=== PATIENT | female | born 1980 | race Caucasian/White ===

== ENCOUNTER 2018-03-08 10:31 | Emergency (ER) | payer MEDICAID ==
[~2018-03-08] VITALS: Ht 160 cm; Wt 64.4 kg
[2018-03-08 10:32] VITALS: Ht 160 cm; Wt 64.4 kg
[2018-03-08 12:58] LABS: BASOPHIL % 0.2 % (0-2); PLATELET COUNT 175 x10^3mcL (130-400)
[2018-03-08 14:36] VITALS: BP 130/86
== END 2018-03-08 15:14 | disposition home or self-care (01) ==
LOC: ED 10:31
PROVIDERS: Emergency Medicine
DX: O36.4XX0 Maternal care for intrauterine death, not applicable or unspecified (principal)
CPT/HCPCS: 36415

== ENCOUNTER 2018-03-12 23:08 | Inpatient (IN) | payer MEDICAID ==
[~2018-03-12] VITALS: Ht 160 cm; Wt 63.7 kg
[2018-03-12 23:13] VITALS: Ht 160 cm; Wt 63.7 kg
[2018-03-13 00:14] LABS: BASOPHIL % 0.2 % (0-2); PLATELET COUNT 210 x10^3mcL (130-400); RED CELL DISTRIBUTION WIDTH 13.4 % (11.5-14.5)
[2018-03-13] MEDS ORDERED: AMPICILLIN500 MG PO (01:41)
[2018-03-13 02:09] LABS: CALCIUM 8.5 mg/dL (8.5-10.1); CARBON DIOXIDE 27.2 mmol/L (21-32); CHLORIDE SERUM 102 mmol/L (98-107); CREATININE SERUM 0.7 mg/dL (0.6-1.0); GFR1 > 60 mL/min; GLUCOSE SERUM 105 mg/dL (74-106); MAGNESIUM 1.6 mg/dL (1.8-2.4); PHOSPHOROUS 4.1 mg/dL (2.5-4.9); POTASSIUM SERUM 3.4 mmol/L (3.5-5.1); SODIUM SERUM 139 mmol/L (136-145)
[2018-03-13 02:25] VITALS: BP 111/60
[2018-03-13 04:57] VITALS: BP 118/66
[2018-03-13 06:48] LABS: microscopic required? YES; urine erythrocyte 3+ (NEGATIVE)
[2018-03-13 07:13] LABS: CALCIUM 8.5 mg/dL (8.5-10.1); CARBON DIOXIDE 23.7 mmol/L (21-32); CHLORIDE SERUM 105 mmol/L (98-107); CREATININE SERUM 0.7 mg/dL (0.6-1.0); GFR1 > 60 mL/min; GLUCOSE SERUM 101 mg/dL (74-106); POTASSIUM SERUM 3.4 mmol/L (3.5-5.1); SODIUM SERUM 140 mmol/L (136-145)
[2018-03-13 07:26] LABS: BASOPHIL % 0.2 % (0-2); PLATELET COUNT 200 x10^3mcL (130-400); RED CELL DISTRIBUTION WIDTH 12.5 % (11.5-14.5)
[2018-03-13 09:18] VITALS: BP 94/51
[2018-03-13 12:28] VITALS: BP 103/60
[2018-03-13 16:13] VITALS: BP 96/52
[2018-03-13 22:19] VITALS: BP 106/60
[2018-03-14 05:41] VITALS: BP 90/48
[2018-03-14 06:22] LABS: BASOPHIL % 0.5 % (0-2); PLATELET COUNT 203 x10^3mcL (130-400); RED CELL DISTRIBUTION WIDTH 13.2 % (11.5-14.5)
[2018-03-14 06:50] LABS: CALCIUM 8.1 mg/dL (8.5-10.1); CHLORIDE SERUM 106 mmol/L (98-107); CREATININE SERUM 0.6 mg/dL (0.6-1.0); GFR1 > 60 mL/min; GLUCOSE SERUM 78 mg/dL (74-106); MAGNESIUM 2.1 mg/dL (1.8-2.4); PHOSPHOROUS 3.4 mg/dL (2.5-4.9); POTASSIUM SERUM 3.8 mmol/L (3.5-5.1); SODIUM SERUM 139 mmol/L (136-145)
[2018-03-14 08:17] VITALS: BP 101/53
[2018-03-14 11:51] VITALS: BP 98/54
[2018-03-14 13:40] VITALS: BP 98/54
[2018-03-14] MEDS ORDERED: IBU800 M2 PO (14:44)
== END 2018-03-14 15:28 | disposition home or self-care (01) | DRG 544 ==
LOC: ED 23:08 → DU 03-13 01:35 → EDBEDREQ 03-13 01:36 → DU 03-13 02:05
PROVIDERS: Emergency Medicine; Family Medicine; Obstetrics & Gynecology
PROC: 10D17ZZ Extraction of Products of Conception, Retained, Via Natural or Artificial Opening (ICD-10-PCS; principal; 2018-03-13 21:30)
DX: O02.1 Missed abortion (principal); D62 Acute posthemorrhagic anemia; E83.42 Hypomagnesemia; E87.6 Hypokalemia; Z68.24 Body mass index [BMI] 24.0-24.9, adult
CPT/HCPCS: C1758; J0690; J1885; J2210; J2250; J2590; J3010; J3475; J7050; Q0092

== ENCOUNTER 2018-07-30 16:37 | Emergency (ER) | payer OTHER ==
[~2018-07-30] VITALS: Ht 160 cm; Wt 63.6 kg
[~2018-07-30 16:37] MED LIST: AMPICILLIN500 MG PO; IBU800 M2 PO
[2018-07-30 16:52] VITALS: Ht 160 cm; Wt 63.6 kg
[2018-07-30 18:45] LABS: BASOPHIL % 0.5 % (0-2); PLATELET COUNT 233 x10^3mcL (130-400)
[2018-07-30 18:46] LABS: RED CELL DISTRIBUTION WIDTH 16.8 % (11.5-14.5)
[2018-07-30 18:47] LABS: UA SPECIFIC GRAVITY <=1.005 (1.005-1.035); microscopic required? YES; urine erythrocyte 2+ (NEGATIVE)
[2018-07-30 18:54] LABS: CALCIUM 8.4 mg/dL (8.5-10.1); CARBON DIOXIDE 29.3 mmol/L (21-32); CHLORIDE SERUM 105 mmol/L (98-107); CREATININE SERUM 0.7 mg/dL (0.6-1.0); GFR1 > 60 mL/min; GLUCOSE SERUM 89 mg/dL (74-106); POTASSIUM SERUM 3.9 mmol/L (3.5-5.1); SODIUM SERUM 140 mmol/L (136-145)
[2018-07-30 18:58] LABS: ALBUMIN 3.9 g/dL (3.4-5.0); ALKALINE PHOSPHATASE 43 U/L (46-116); ALT/SGPT 21 U/L (14-59); AST/SGOT 18 U/L (15-37); BILIRUBIN TOTAL 1.2 mg/dL (0.20-1.00); LIPASE 210 IU/L (73-393); TOTAL PROTEIN, SERUM 7.5 g/dL (6.4-8.2)
[2018-07-30 21:55] VITALS: BP 109/75
== END 2018-07-30 21:55 | disposition home or self-care (01) ==
LOC: ED 16:37
PROVIDERS: Emergency Medicine
DX: N39.0 Urinary tract infection, site not specified (principal)
CPT/HCPCS: 36415

== ENCOUNTER 2020-02-25 16:48 | Emergency (ER) | payer OTHER ==
[~2020-02-25] VITALS: Ht 160 cm; Wt 77.8 kg
[2020-02-25 16:57] VITALS: Ht 160 cm; Wt 77.8 kg
[2020-02-25 17:27] LABS: PLATELET COUNT 256 x10^3mcL (130-400); RED CELL DISTRIBUTION WIDTH 13.8 % (11.5-14.5)
[2020-02-25 17:34] LABS: CALCIUM 8.5 mg/dL (8.5-10.1); CARBON DIOXIDE 23.2 mmol/L (21-32); CHLORIDE SERUM 104 mmol/L (98-107); CREATININE SERUM 0.7 mg/dL (0.6-1.0); GFR1 > 60 mL/min; GLUCOSE SERUM 111 mg/dL (74-106); POTASSIUM SERUM 3.9 mmol/L (3.5-5.1); SODIUM SERUM 138 mmol/L (136-145)
[2020-02-25 17:40] LABS: ALBUMIN 2.5 g/dL (3.4-5.0); ALKALINE PHOSPHATASE 115 U/L (46-116); ALT/SGPT 19 U/L (14-59); AST/SGOT 20 U/L (15-37); BILIRUBIN TOTAL 0.77 mg/dL (0.20-1.00); LIPASE 173 IU/L (73-393); TOTAL PROTEIN, SERUM 6.3 g/dL (6.4-8.2)
[2020-02-25 17:53] LABS: UA SPECIFIC GRAVITY 1.015 (1.005-1.035); microscopic required? YES; urine erythrocyte 1+ (NEGATIVE)
[2020-02-25 18:50] LABS: BAND NEUTROPHIL 4 % (0-10); BASOPHIL 0 % (0-2); MONOCYTE 2 % (0-7); SEGMENTED NEUTROPHILS 64 % (37-75)
[2020-02-25 18:51] LABS: rbc morphology (normal/abnorm) ABNORMAL (NORMAL)
[2020-02-25 19:46] VITALS: BP 110/60
== END 2020-02-25 19:46 | disposition home or self-care (01) ==
LOC: ED 16:48
PROVIDERS: Emergency Medicine
DX: O26.893 Other specified pregnancy related conditions, third trimester (principal); R10.13 Epigastric pain; R19.7 Diarrhea, unspecified; Z3A.34 34 weeks gestation of pregnancy
CPT/HCPCS: J7030